=== PATIENT | female | born 1935 | race Hispanic/Latino ===

== ENCOUNTER 2021-03-31 18:52 | Inpatient (IN) | payer MEDICARE ==
[~2021-03-31] VITALS: Ht 152.4 cm; Wt 44.7 kg
[2021-03-31] MEDS ORDERED: GUAIFENESIN-DM 200/20 MG 10 ML PO PRN (21:30)
[2021-03-31] MEDS ORDERED: NITROGLYCERIN 0.4 MG SL TAB SL PRN (21:30)
[2021-03-31] MEDS: CEFTRIAXONE 1G VIAL IV SCH (21:30)
[2021-03-31] MEDS ORDERED: HYDRALAZINE 20MG/ML VIAL IV PRN (21:30)
[2021-03-31] MEDS ORDERED: ONDANSETRON 4MG INJ IV PRN (21:30)
[2021-03-31] MEDS ORDERED: ACETAMINOPHEN 325 MG TAB PO PRN (21:30)
[2021-03-31] MEDS: 0.9% NACL 250ML IVPB SCH (21:30)
[2021-03-31] MEDS ORDERED: LACTATED RINGERS 1000ML 1,000 ML IV SCH (21:30)
[2021-03-31] MEDS ORDERED: AZITHROMYCIN 500MG VIAL IVPB SCH (21:30)
[2021-03-31] MEDS ORDERED: LACTULOSE 20 GM/30 ML UDCUP PO PRN (21:30)
[2021-03-31 21:34] LABS: ABG BASE EXCESS -1.5 mmol/L (-2.0-3.0); ABG HCO3 22.4 mmol/L (21.0-28.0); ABG OXYGEN SATURATION 94.9 % (95.0-99.0); ABG PCO2 36 mmHg (32-45)
[2021-03-31 21:58] LABS: CREATININE 1.4 mg/dL (0.5-1.5); POTASSIUM 3.9 mmol/L (3.5-5.1)
[2021-03-31 22:02] LABS: ALBUMIN 3.3 g/dL (3.5-5.0); BILIRUBIN,TOTAL 1.7 mg/dL (0.2-1.0); CRP QUANTITATIVE 133.7 mg/L (0.00-9.0); TOTAL PROTEIN, SERUM 8.7 g/dL (6.0-8.3)
[2021-03-31 22:05] LABS: BASOPHILS % (AUTO) 0.1 % (0.0-5.0); EOSINOPHILS % (AUTO) 0.1 % (0.0-8.0); HEMATOCRIT 30.1 % (36-48); LYMPHOCYTES % (AUTO) 6.3 % (21.0-51.0); MEAN CORPUSCULAR HEMOGLOBIN 33.2 pg (27.0-33.0); MEAN CORPUSCULAR HGB CONC 31.6 g/dL (32.0-36.0); MEAN CORPUSCULAR VOLUME 105.2 fL (79-99); MONOCYTES % (AUTO) 17.1 % (3.0-13.0); PLATELET COUNT (AUTO) 96 K/uL (130-400); RED BLOOD CELL COUNT(AUTO) 2.86 MIL/uL (4.00-5.50); RED CELL DISTRIBUTION WIDTH 15.5 % (11.0-15.5)
[2021-03-31] MEDS: 0.9%NACL 1000ML 1,000 ML IV SCH (23:45)
[2021-04-01] VITALS (7 sets, daily range): BP systolic 90–117; BP diastolic 46–61
[2021-04-01] MEDS ORDERED: SODIUM CHLORIDE 3% FOR INHALATION 4 ML/AMP VIAL.NEB IH ONE (07:23)
[2021-04-01] MEDS: INSULIN HUMULIN R 100 UNIT/ML 3ML SQ SCH ×4 (07:30→20:27)
[2021-04-01] MEDS: CARVEDILOL 3.125 MG TABLET PO SCH ×2 (08:26→20:26)
[2021-04-01] MEDS: PANTOPRAZOLE 40 MG TAB DR PO SCH (08:27)
[2021-04-01] MEDS: FUROSEMIDE 40 MG TABLET PO SCH (08:29)
[2021-04-01] MEDS: ENOXAPARIN SODIUM 30 MG/0.3 ML SQ SCH (08:30)
[2021-04-01] MEDS ORDERED: DOXYCYCLINE 100MG IVPB (VIAL) IVPB SCH (09:30)
[2021-04-01] MEDS ORDERED: 0.9% NACL 250ML IVPB SCH (09:30)
[2021-04-01] MEDS ORDERED: IOHEXOL 350 MG/ML 100ML INFUS..BTL IV ONE (09:59)
[2021-04-01] MEDS: 0.9% NACL 250ML 250 ML IV SCH ×2 (12:36→20:32)
[2021-04-01] MEDS: DOXYCYCLINE 100MG+NS 250ML IV SCH ×2 (12:36→20:32)
[2021-04-01] MEDS: ACETAMINOPHEN 325 MG TAB PO PRN (12:36)
[2021-04-01] MEDS: 0.9%NACL 1000ML 1,000 ML IV SCH (12:50)
[2021-04-01] MEDS ORDERED: CARV3.12 PO (16:33)
[2021-04-01] MEDS ORDERED: FERR-63 PO (16:33)
[2021-04-01] MEDS ORDERED: PANT40TA PO (16:33)
[2021-04-01] MEDS ORDERED: FURO20TA4 PO (16:33)
[2021-04-01] MEDS ORDERED: SPIR25TA6 PO (16:33)
[2021-04-01] MEDS ORDERED: ATOR40TA69 PO (16:35)
[2021-04-01] MEDS ORDERED: LEVO50CA4 PO (16:35)
[2021-04-01] MEDS: CEFTRIAXONE 1G VIAL IV SCH (20:32)
[2021-04-01] MEDS: 0.9% NACL 250ML IVPB SCH (20:32)
[2021-04-01 21:39] LABS: APPEARANCE,URINE Cloudy (CLEAR); BILIRUBIN,URINE Negative (NEGATIVE); COLOR,URINE Dark Yellow (YELLOW); GLUCOSE, URINE (UA) Negative (NEGATIVE); KETONES,URINE Negative (NEGATIVE); LEUKOCYTE ESTERASE ,URINE Small (NEGATIVE); NITRATE,URINE Negative (NEGATIVE); OCCULT BLOOD,URINE Trace (NEGATIVE); PH,URINE 5.5 (5.0-8.0); PROTEIN,URINE POS 2+ mg/dL (NEGATIVE)
[2021-04-01 21:49] LABS: BACTERIA,URINE Moderate /HPF (None Seen); MUCUS,URINE Moderate LPF (None Seen); SQUAMOUS EPITHELIAL CELL,UR Moderate /HPF (0-2)
[2021-04-01 21:50] LABS: AMORPHOUS SEDIMENT,UR Few /LPF (None Seen)
[2021-04-02 04:06] VITALS: BP 107/58
[2021-04-02 05:19] LABS: HEMATOCRIT 27.8 % (36-48); MEAN CORPUSCULAR HEMOGLOBIN 32.2 pg (27.0-33.0); MEAN CORPUSCULAR HGB CONC 30.6 g/dL (32.0-36.0); MEAN CORPUSCULAR VOLUME 105.3 fL (79-99); RED BLOOD CELL COUNT(AUTO) 2.64 MIL/uL (4.00-5.50); RED CELL DISTRIBUTION WIDTH 15.6 % (11.0-15.5); RETICULOCYTE % (AUTO) 1.99 % (0.42-2.23); WHITE BLOOD COUNT (AUTO) 5.5 K/uL (4.8-10.8)
[2021-04-02 05:58] LABS: % IRON SATURATION 21.7 % (22-44)
[2021-04-02 06:19] LABS: CREATININE 1.4 mg/dL (0.5-1.5); POTASSIUM 3.6 mmol/L (3.5-5.1); THYROID STIMULATING HORMONE 4.09 uIU/mL (0.36-3.74)
[2021-04-02] MEDS: INSULIN HUMULIN R 100 UNIT/ML 3ML SQ SCH ×4 (06:30→20:18)
[2021-04-02 08:00] VITALS: BP 112/56
[2021-04-02] MEDS: 0.9% NACL 250ML 250 ML IV SCH ×2 (09:31→20:17)
[2021-04-02] MEDS: PANTOPRAZOLE 40 MG TAB DR PO SCH (09:31)
[2021-04-02] MEDS: CARVEDILOL 3.125 MG TABLET PO SCH ×2 (09:31→20:20)
[2021-04-02] MEDS: DOXYCYCLINE 100MG+NS 250ML IV SCH ×2 (09:31→20:17)
[2021-04-02] MEDS: FUROSEMIDE 40 MG TABLET PO SCH (09:32)
[2021-04-02] MEDS: ENOXAPARIN SODIUM 30 MG/0.3 ML SQ SCH (09:34)
[2021-04-02 11:51] VITALS: BP 116/60
[2021-04-02 16:00] VITALS: BP 119/71
[2021-04-02 20:17] VITALS: BP 107/61
[2021-04-02] MEDS: CEFTRIAXONE 1G VIAL IV SCH (20:17)
[2021-04-02] MEDS: 0.9% NACL 250ML IVPB SCH (20:20)
[2021-04-02 23:49] VITALS: BP 111/63
[2021-04-03 03:36] VITALS: BP 122/74
[2021-04-03] MEDS: INSULIN HUMULIN R 100 UNIT/ML 3ML SQ SCH ×4 (05:15→19:55)
[2021-04-03] MEDS: ACETAMINOPHEN 325 MG TAB PO PRN ×2 (05:36→09:18)
[2021-04-03 05:58] LABS: HEMATOCRIT 30.7 % (36-48); MEAN CORPUSCULAR HEMOGLOBIN 32.1 pg (27.0-33.0); MEAN CORPUSCULAR HGB CONC 30.6 g/dL (32.0-36.0); MEAN CORPUSCULAR VOLUME 104.8 fL (79-99); RED BLOOD CELL COUNT(AUTO) 2.93 MIL/uL (4.00-5.50); RED CELL DISTRIBUTION WIDTH 15.4 % (11.0-15.5); WHITE BLOOD COUNT (AUTO) 5.6 K/uL (4.8-10.8)
[2021-04-03 06:26] LABS: CREATININE 1.3 mg/dL (0.5-1.5); POTASSIUM 3.7 mmol/L (3.5-5.1)
[2021-04-03 08:00] VITALS: BP 130/75
[2021-04-03] MEDS: PANTOPRAZOLE 40 MG TAB DR PO SCH (09:20)
[2021-04-03] MEDS: FUROSEMIDE 40 MG TABLET PO SCH (09:20)
[2021-04-03] MEDS: CARVEDILOL 3.125 MG TABLET PO SCH ×2 (09:23→20:45)
[2021-04-03] MEDS: ENOXAPARIN SODIUM 30 MG/0.3 ML SQ SCH (09:24)
[2021-04-03] MEDS: DOXYCYCLINE 100MG+NS 250ML IV SCH ×2 (09:24→20:44)
[2021-04-03] MEDS: 0.9% NACL 250ML 250 ML IV SCH ×2 (09:24→20:44)
[2021-04-03] MEDS ORDERED: LIDOCAINE 5% TOPICAL PATCH TP SCH (11:00)
[2021-04-03 12:00] VITALS: BP 127/75
[2021-04-03 16:00] VITALS: BP 121/63
[2021-04-03 20:24] VITALS: BP 113/67
[2021-04-03] MEDS: CEFTRIAXONE 1G VIAL IV SCH (20:44)
[2021-04-03] MEDS: 0.9% NACL 250ML IVPB SCH (20:45)
[2021-04-03 23:55] VITALS: BP 113/56
[2021-04-04 03:30] VITALS: BP 112/55
[2021-04-04] MEDS: INSULIN HUMULIN R 100 UNIT/ML 3ML SQ SCH ×2 (05:29→11:30)
[2021-04-04 07:30] VITALS: BP 139/78
[2021-04-04] MEDS ORDERED: IRON SUCROSE COMPLEX 400 MG in 0.9%NACL 50ML 50 ML IV SCH (08:30)
[2021-04-04] MEDS ORDERED: DOXY100C5 PO (08:35)
[2021-04-04 09:43] LABS: HEMATOCRIT 29.8 % (36-48); MEAN CORPUSCULAR HEMOGLOBIN 32.3 pg (27.0-33.0); MEAN CORPUSCULAR HGB CONC 31.5 g/dL (32.0-36.0); MEAN CORPUSCULAR VOLUME 102.4 fL (79-99); RED BLOOD CELL COUNT(AUTO) 2.91 MIL/uL (4.00-5.50); RED CELL DISTRIBUTION WIDTH 15.3 % (11.0-15.5); WHITE BLOOD COUNT (AUTO) 4.3 K/uL (4.8-10.8)
[2021-04-04 09:57] LABS: CREATININE 1.1 mg/dL (0.5-1.5); POTASSIUM 3.5 mmol/L (3.5-5.1)
[2021-04-04 09:59] LABS: BILIRUBIN,TOTAL 0.9 mg/dL (0.2-1.0); TOTAL PROTEIN, SERUM 8.2 g/dL (6.0-8.3)
[2021-04-04] MEDS ORDERED: COMPOUND IV MISC 1 EACH IVSOLN MISC PRN (10:00)
[2021-04-04] MEDS: CARVEDILOL 3.125 MG TABLET PO SCH (10:08)
[2021-04-04] MEDS: FUROSEMIDE 40 MG TABLET PO SCH (10:08)
[2021-04-04] MEDS: ENOXAPARIN SODIUM 30 MG/0.3 ML SQ SCH (10:09)
[2021-04-04] MEDS: DOXYCYCLINE 100MG+NS 250ML IV SCH (10:09)
[2021-04-04] MEDS: PANTOPRAZOLE 40 MG TAB DR PO SCH (10:09)
[2021-04-04] MEDS: 0.9% NACL 250ML 250 ML IV SCH (10:09)
[2021-04-04 11:00] VITALS: BP 105/64
== END 2021-04-04 16:50 | disposition home or self-care (01) | DRG 193 ==
LOC: EDH 18:52 → EDHIP 21:02 → 4AH 04-01 00:24
PROVIDERS: ADMIT Internal Medicine; ATTEND Internal Medicine
DX: J18.9 Pneumonia, unspecified organism (principal); J96.00 Acute respiratory failure, unspecified whether with hypoxia or hypercapnia; I13.0 Hypertensive heart and chronic kidney disease with heart failure and stage 1 through stage 4 chronic kidney disease, or unspecified chronic kidney disease; R17 Unspecified jaundice; J44.0 Chronic obstructive pulmonary disease with (acute) lower respiratory infection; D53.9 Nutritional anemia, unspecified; Z20.822 Contact with and (suspected) exposure to COVID-19; K21.9 Gastro-esophageal reflux disease without esophagitis; E78.5 Hyperlipidemia, unspecified; D69.6 Thrombocytopenia, unspecified; I25.10 Atherosclerotic heart disease of native coronary artery without angina pectoris; I50.9 Heart failure, unspecified; N18.32 Chronic kidney disease, stage 3b; E11.22 Type 2 diabetes mellitus with diabetic chronic kidney disease; F03.90 Unspecified dementia, unspecified severity, without behavioral disturbance, psychotic disturbance, mood disturbance, and anxiety; Z95.1 Presence of aortocoronary bypass graft
CPT/HCPCS: 36415; 36600; 71045; 71260; 73030; 80048; 80053; 81001; 82550; 82607; 82728; 82746; 82803; 82948; 83540; 83550; 83874; 83880; 84145; 84443; 84484; 85025; 85027; 85045; 86140; 87040; 87071; 87088; 87205; 87635; 87804; 87880; 93005; 93970; 97039; G0378; J0696; J1650; J1756; J2405; J3490; J7050; Q9967